=== PATIENT | male | born 1995 | race Two or more races ===

== ENCOUNTER 2019-06-10 20:08 | Emergency (ER) | payer SELFPAY ==
[2019-06-10] MEDS ORDERED: KETOROLAC TROMETHAMINE 60 MG/2 ML SDV IM ONE (22:30)
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
[2019-06-11 00:29] VITALS: BP 137/77
== END 2019-06-11 00:30 | disposition home or self-care (01) ==
LOC: ER 20:08
DX: S16.1XXA Strain of muscle, fascia and tendon at neck level, initial encounter (principal); S39.012A Strain of muscle, fascia and tendon of lower back, initial encounter; V49.40XA Driver injured in collision with unspecified motor vehicles in traffic accident, initial encounter
CPT/HCPCS: 99283; 96372; 72050; 72110; J1885